=== PATIENT | female | born 1965 | race Caucasian/White ===

== ENCOUNTER 2018-12-18 07:46 | Day surgery (SDC) | payer OTHER ==
[2018-12-18] MEDS ORDERED: LABETALOL HCL 20MG INJ IV (12:00)
[2018-12-18] MEDS: hydrALAzine 20 MG INJ IV (12:19)
== END 2018-12-18 12:55 | disposition home or self-care (01) ==
LOC: GIL 07:46
DX: Z12.11 Encounter for screening for malignant neoplasm of colon (principal); K64.8 Other hemorrhoids; K29.50 Unspecified chronic gastritis without bleeding; I10 Essential (primary) hypertension; E11.9 Type 2 diabetes mellitus without complications
CPT/HCPCS: 43239; 82962; 88305; 88312